=== PATIENT | male | born 1960 | race Caucasian/White ===

== ENCOUNTER 2016-07-16 16:05 | Emergency (ER) | payer OTHER ==
[2016-07-16 16:12] VITALS: TEMP 97.5
[2016-07-16] MEDS ORDERED: NS 1,000 ML IV ONE (16:25)
[2016-07-16] MEDS ORDERED: ONDANSETRON 4 MG/2 ML VIAL IVP ONE (16:25)
[2016-07-16 16:32] LABS: % IMMATURE GRANULYOCYTES 0.6 % (0.0-1.1); ABSOLUTE IMMATURE GRANULOCYTES 0.08 10^3/uL (0.00-0.10); ADD DIFF? NO; ADD MORPH? NO; ADD SCAN? NO; ATYPICAL LYMPHOCYTE FLAG 0 (0-99); FRAGMENT RBC FLAG 0 (0-99); HEMATOCRIT 44.5 % (40.0-51.0); HEMOGLOBIN 15.1 g/dL (13.7-17.5); LEFT SHIFT FLG 0 (0-99); LIPEMIA HEMOLYSIS FLAG 90 (0-99); MEAN CELL HEMOGLOBIN CONCENTR. 33.9 g/dL (32.4-36.7); MEAN CELL VOLUME 85.4 fL (81.5-99.8); MEAN PLATELET VOLUME 9.9 fL (8.7-11.7); PLATELET CLUMPS FLAG 0 (0-99); PLATELET COUNT 315 10^3/uL (150-400); RED BLOOD CELL COUNT 5.21 10^6/uL (4.40-6.38); RED CELL DISTRIBUTION WIDTH 13.1 % (11.5-15.2)
[2016-07-16 16:48] LABS: ALANINE AMINOTRANSFERASE 29 IU/L (21-72); ALBUMIN 4.6 g/dL (3.5-5.0); ALKALINE PHOSPHATASE 73 IU/L (38-126); ANION GAP 13 mEq/L (8-16); ASPARTATE AMINOTRANSFERASE 20 IU/L (17-59); BILIRUBIN,TOTAL 0.9 mg/dL (0.1-1.4); CALCIUM 9.6 mg/dL (8.5-10.4); CARBON DIOXIDE 27 mEq/l (22-31); CHLORIDE 101 mEq/L (97-110); GLOMERULAR FILTRATION RATE > 60; GLUCOSE 120 mg/dL (70-100); POTASSIUM 3.8 mEq/L (3.5-5.2); SODIUM 141 mEq/L (134-144); TOTAL PROTEIN 7.1 g/dL (6.3-8.2)
[2016-07-16] MEDS ORDERED: KETOROLAC 15 MG/1 ML SDV IVP ONE (16:50)
--- NOTE | 2016-07-16 16:51 | EDPHY ---
H & P Stated Complaint: RLQ pain. Nausea. Time Seen by Provider: 07/16/16 16:14 HPI/ROS: CHIEF COMPLAINT: abdominal pain, flank pain, nausea HISTORY OF PRESENT ILLNESS: 56-year-old male presents emergency department complaining of right lower quadrant pain that radiates to right groin and right flank. Patient reports pain started mildly last night around 11:00 p.m., he woke up this morning feeling better for about 15 minutes and then he had worsening deep aching pain that has waxed and waned all day today. Patient reports 1 and 0.5 hours ago his pain became worse with nausea. He denies fevers or chills, no vomiting, no diarrhea. Patient reports minimal appetite today, pain not worse after eating. He denies history of similar pain, no history of kidney stones. REVIEW OF SYSTEMS: A comprehensive 10 point review of systems is otherwise negative aside from elements mentioned in the history of present illness. Source: Patient Exam Limitations: No limitations - Personal History Current Tetanus Diphtheria and Acellular Pertussis (TDAP): No - Medical/Surgical History Hx Asthma: Yes Hx Chronic Respiratory Disease: No Hx Diabetes: No Hx Cardiac Disease: No Hx Renal Disease: No Hx Cirrhosis: No Hx Alcoholism: No Hx HIV/AIDS: No Hx Splenectomy or Spleen Trauma: No Other PMH: Asthma as a child. - Social History Smoking Status: Never smoked - Physical Exam Exam: Physical Exam Gen: Alert and Oriented, NAD HEENT: PERRL, moist mucous membranes NECK: no meningismus CV: regular rate and regular rhythm PULM: CTAB, no wheezes ABDOMEN: soft, non tender to palpation, BS present BACK: Right CVA tenderness NEURO: Neurologically grossly intact EXTREMITIES: normal appearing SKIN: no rash or break in skin on exposed skin PSYCH: answers questions appropriately. Constitutional: Initial Vital Signs Temperature (C) 36.4 C 07/16/16 16:09 Heart Rate 78 07/16/16 16:09 Respiratory Rate 18 07/16/16 16:09 Blood Pressure 152/100 H 07/16/16 16:09 O2 Sat (%) 97 07/16/16 16:09 O2 Delivery Mode Room Air Allergies/Adverse Reactions: grass pollen Allergy (Verified 07/16/16 16:12) Home Medications: Medication Instructions Recorded Ondansetron Odt [Zofran Odt] 4 mg PO Q6-8PRN PRN #8 tab 07/16/16 Tamsulosin HCl 0.4 mg PO DAILY 7 Days 07/16/16 oxyCODONE/APAP 5/325 [Percocet 1 - 2 tab PO Q6H PRN #12 tab 07/16/16 5/325] Medical Decision Making - Diagnostics Imaging: CT abdomen pelvis- Impression: Right nephrolithiasis with mild hydronephrosis. There is a right mid ureter stone measuring 3 x 3 x 4 mm. Critical results relayed by Dr. Bret Lerma to CORNELL Barker, on July 16, 2016 at 1735 hours. Dictated By: Bret Lerma MD ED Course/Re-evaluation: IV established, CBC and chemistry panel obtained along with urinalysis, patient was given 50 mcg of fentanyl for pain, CT abdomen pelvis without contrast obtained to evaluate for ureteral calculi. CBC shows an elevated white blood cell count at 12,000, chemistry panel with normal creatinine and BUN, patient was given 15 mg of Toradol IV. CT abdomen pelvis shows a 3 x 3 x 5 mm right mid ureteral calculi with mild hydronephrosis , urinalysis with 50-182 RBCs, 3-5 WBCs, patient is afebrile, nontoxic- appearing. 550pm-patient reports pain is increasing, he was given 0.5 mg of Dilaudid IV. 630pm patient reports feeling much better, He is calling a neighbor for a ride home. He will be discharged home with prescription for tamsulosin, Percocet and Zofran. Patient has been given strict return precautions for fevers, unable to urinate, pain that is not controlled. Differential Diagnosis: The differential diagnosis for the patient's flank pain included but was not limited to musculoskeletal causes, kidney stone, pyelonephritis, shingles, diverticulitis, appendicitis, and aortic aneurysm. - Data Points Laboratory Results: Laboratory Results 07/16/16 16:20 07/16/16 16:20 07/16/16 07/16/16 16:54 16:20 WBC 12.80 H 10^3/uL (3.80-9.50) RBC 5.21 10^6/uL (4.40-6.38) Hgb 15.1 g/dL (13.7-17.5) Hct 44.5 % (40.0-51.0) MCV 85.4 fL (81.5-99.8) MCH 29.0 pg (27.9-34.1) MCHC 33.9 g/dL (32.4-36.7) RDW 13.1 % (11.5-15.2) Plt Count 315 10^3/uL (150-400) MPV 9.9 fL (8.7-11.7) Neut % (Auto) 67.2 % (39.3-74.2) Lymph % (Auto) 25.4 % (15.0-45.0) Powell % (Auto) 5.9 % (4.5-13.0) Eos % (Auto) 0.4 L % (0.6-7.6) Baso % (Auto) 0.5 % (0.3-1.7) Nucleat RBC Rel Count 0.0 % (0.0-0.2) Absolute Neuts (auto) 8.60 H 10^3/uL (1.70-6.50) Absolute Lymphs (auto) 3.25 H 10^3/uL (1.00-3.00) Absolute Monos (auto) 0.75 10^3/uL (0.30-0.80) Absolute Eos (auto) 0.05 10^3/uL (0.03-0.40) Absolute Basos (auto) 0.07 10^3/uL (0.02-0.10) Absolute Nucleated RBC 0.00 10^3/uL (0-0.01) Immature Gran % 0.6 % (0.0-1.1) Immature Gran # 0.08 10^3/uL (0.00-0.10) Sodium 141 mEq/L (134-144) Potassium 3.8 mEq/L (3.5-5.2) Chloride 101 mEq/L (97-110) Carbon Dioxide 27 mEq/l (22-31) Anion Gap 13 mEq/L (8-16) BUN 17 mg/dL (7-23) Creatinine 1.0 mg/dL (0.7-1.3) Estimated GFR > 60 Glucose 120 H mg/dL (70-100) Calcium 9.6 mg/dL (8.5-10.4) Total Bilirubin 0.9 mg/dL (0.1-1.4) AST 20 IU/L (17-59) ALT 29 IU/L (21-72) Alkaline Phosphatase 73 IU/L (38-126) Total Protein 7.1 g/dL (6.3-8.2) Albumin 4.6 g/dL (3.5-5.0) Urine Color YELLOW Urine Appearance HAZY Urine pH 5.0 (5.0-7.5) Ur Specific [place] 1.023 (1.002-1.030) Urine Protein 1+ H (NEGATIVE) Urine Ketones NEGATIVE (NEGATIVE) Urine Blood 3+ H (NEGATIVE) Urine Nitrate NEGATIVE (NEGATIVE) Urine Bilirubin NEGATIVE (NEGATIVE) Urine Urobilinogen NEGATIVE EU (0.2-1.0) Ur Leukocyte Esterase NEGATIVE (NEGATIVE) Urine RBC 50-182 H /hpf (0-3) Urine WBC 3-5 H /hpf (0-3) Ur Epithelial Cells NONE SEEN /lpf (NONE-1+) Urine Bacteria 1+ H /hpf (NONE SEEN) Urine Mucus 1+ /lpf (NONE-1+) Ur Culture Indicated? INDICATED H (NI) Urine Glucose NEGATIVE (NEGATIVE) Medications Given: Discontinued Medications Fentanyl (Sublimaze) 50 mcg IVP EDNOW ONE Stop: 07/16/16 17:10 Last Admin: 07/16/16 17:31 Dose: 50 mcg Fentanyl (Sublimaze) 50 mcg IVP EDNOW ONE Stop: 07/16/16 17:32 Last Admin: 07/16/16 17:32 Dose: 50 mcg Hydromorphone HCl (Dilaudid) 0.5 mg IVP EDNOW ONE Stop: 07/16/16 17:50 Last Admin: 07/16/16 18:22 Dose: Not Given Sodium Chloride (Ns) 1,000 mls @ 0 mls/hr IV ONCE ONE PRN Reason: Wide Open Stop: 07/16/16 16:26 Last Admin: 07/16/16 16:29 Dose: 1,000 mls Ketorolac Tromethamine (Toradol) 15 mg IVP EDNOW ONE Stop: 07/16/16 16:51 Last Admin: 07/16/16 17:11 Dose: 15 mg Ondansetron HCl (Zofran) 4 mg IVP EDNOW ONE Stop: 07/16/16 16:26 Last Admin: 07/16/16 16:29 Dose: 4 mg Departure - Departure Disposition: Home, Routine, Self-Care Clinical Impression: Right ureteral stone Condition: Good Instructions: Kidney Stones (ED) Additional Instructions: Take 600 mg of ibuprofen every 8 hours with food, take 0.4 mg of tamsulosin daily for 7 days, take Percocet as needed for severe pain, take Zofran as needed for nausea. Return to the emergency department for pain that is not controlled, unable to urinate, fevers, any other questions or concerns. Referrals: JARRED FENTON [Primary Care Provider] - As per Instructions Prescriptions: oxyCODONE/APAP 5/325 [Percocet 5/325] 1 - 2 tab PO Q6H PRN #12 tab PRN Reason: Pain, Severe Tamsulosin HCl 0.4 mg PO DAILY 7 Days Ondansetron Odt [Zofran Odt] 4 mg PO Q6-8PRN PRN #8 tab PRN Reason: Nausea/Vomiting, Can'T Take Po
[2016-07-16 17:08] LABS: COLOR YELLOW; LEUKOCYTE ESTERASE,URINE NEGATIVE (NEGATIVE); NITRITE,URINE NEGATIVE (NEGATIVE)
[2016-07-16] MEDS ORDERED: fentaNYL 100 MCG/2 ML INJ IVP ONE ×2 (17:09→17:31)
[2016-07-16 17:10] LABS: BACTERIA 1+ /hpf (NONE SEEN); MUCUS 1+ /lpf (NONE-1+); RBC,URINE 50-182 /hpf (0-3)
[2016-07-16] MEDS ORDERED: ONDANSETRON 4 MG/2 ML VIAL ONE (17:17)
--- NOTE | 2016-07-16 17:42 | CT ---
CT Scan of the Abdomen and Pelvis (Without IV Contrast) Clinical Indications: Right-sided abdominal pain. Technique: No intravenous contrast was given. Multidetector helical CT imaging was performed from t he diaphragm to the symphysis pubis. Dose reduction techniques were utilized. Findings: Abdomen: The lung bases are clear, and there is no significant pleural fluid. The liver is normal. No calcifications are seen in the gallbladder. The pancreas and spleen are normal. The adrenal gla nds are normal. The aorta tapers normally. There is a punctate upper collecting system stone on the right. There is a larger renal pelvis stone measuring 8 x 6 x 8 mm. There is a punctate lower collecting stone. There is a 3 x 3 x 4 mm stone in the mid ureter, right side, with mild hydronephrosis. The left kidney is unremarkable. The left ureter is nondilated. Bladder is grossly unremarkable. Pelvis: The urinary bladder is unremarkable. No free fluid in the pelvis. No masses are identifie d. Impression: Right nephrolithiasis with mild hydronephrosis. There is a right mid ureter stone measur ing 3 x 3 x 4 mm. Critical results relayed by Dr. Bret Lerma to CORNELL Barker, on July 16, 2016 at 1735 hours .
[2016-07-16] MEDS ORDERED: HYDROmorphONE/DILAUDID 1 MG/ML SYR IVP ONE (17:49)
[2016-07-16 18:49] VITALS: BP 148/85; PULSE 83; RESP 16; O2SAT 96
== END 2016-07-16 18:48 | disposition home or self-care (01) ==
DX: N20.1 Calculus of ureter (principal); J45.909 Unspecified asthma, uncomplicated
CPT/HCPCS: 96374; J1885; J2405; J3010